=== PATIENT | female | born 1955 | race Caucasian/White ===

== ENCOUNTER 2017-08-29 16:40 | Emergency (ER) | payer OTHER, SELFPAY ==
[2017-08-29 16:42] VITALS: BP 128/79; PULSE 110; RESP 16; TEMP 36.5; O2SAT 100; BMI 27.6
--- NOTE | 2017-08-29 17:12 | EKG12_ITS ---
Test Reason : Blood Pressure : / mmHG Vent. Rate : 107 BPM Atrial Rate : 107 BPM P-R Int : 138 ms QRS Dur : 086 ms QT Int : 346 ms P-R-T Axes : 062 061 036 degrees QTc Int : 461 ms Sinus tachycardia Otherwise normal ECG Confirmed by MIRNA CARDENAS, ANDREA ([id number]), news editor JESSICA PEREZ ([id number] on 09/02/2017 10:48:17 AM Referred By: IMELDA Confirmed By:ANDREA BRADLEY MD
[2017-08-29] MEDS: Ondansetron 4 MG/2 ML Vial IV (17:27)
[2017-08-29] MEDS: 0.9% Normal Saline 1,000 ML 1000 ML IV (17:27)
[2017-08-29 17:36] LABS: Mucous, Urine 0 SEEN /hpf (<or=2+); Red Blood Cells-Urine 0 SEEN /hpf (0-5)
[2017-08-29 17:38] LABS: Absolute Lymphocyte Count 1.23 X10^3/ul (0.83-4.51); Absolute Neutrophil Count 6.7 X10^3/uL (2.0-7.7); Basophil# 0.03 X10^3/uL; Basophil% 0.3 % (0-1); Eosinophil# 0.09 X10^3/uL; Hematocrit 33.3 % (37-47); Hemoglobin 11.4 g/dl (12.0-15.0); Lymphocyte # 1.23 X10^3/ul (4.0); Mean Corp Hgb Conc 34.2 g/gl (32-36); Mean Corpuscular Hgb 28.5 pg (27.0-32.0); Mean Corpuscular Volume 83.3 fL (81-99); Mean Platelet Vol. 9.9 fl (6.2-12.0); Monocyte# 1.35 X10^3/uL; Monocyte% 14.3 % (0-10); Neutrophil # 6.73 X10^3/uL (2.7-7.7); Neutrophil % 71.2 % (47-70); Platelet Count 266 K/mm3 (150-450); RBC Distribution Width CV 12.1 % (11.6-14.6); RBC Distribution Width SD 36.6 fl (35.1-43.9); White Blood Count 9.5 K/mm3 (4.4-11.0)
[2017-08-29 17:39] LABS: POSITIVE COUNT NO; POSITIVE DIFFERENTIAL NO; POSITIVE MORPHOLOGY NO
[2017-08-29 17:42] LABS: Color, Urine Yellow (Yellow); Glucose, Dipstick Normal (Normal); Ketone-Dipstick 5 mg/dl (Negative); Leukocyte Esterase-Dipstick 500 /ul (Negative); Nitrite-Dipstick Negative (Negative); Occult Blood-Urine 25 /ul (Negative); Protein-Dipstick 30 mg/dl (Negative); Specific Gravity, Urine 1.015 (1.002-1.030); Urine Clarity Sl. Cloudy (Clear); Urine Urobilinogen Normal (Normal)
[2017-08-29 18:01] LABS: ALB/GLOB Ratio 0.7 RATIO (0.9-2.4); AST(SGOT) 17 U/L (15-37); Alanine Aminotransfer ALT/SGPT 20 U/L (13-56); Albumin, Serum 3.4 g/dL (3.2-5.0); Alkaline Phosphatase 60 U/L (45-117); Anion Gap 9 (5-15); BUN 23 mg/dL (7-18); BUN/Creat Ratio 18.7 RATIO (10-20); Chloride 96 mmol/L (98-107); Creatinine, Serum 1.23 mg/dL (0.55-1.02); EST Glomerular Filtration Rate 47 mL/min (>60); Est Glom Filt Rate - Afr Amer 57 mL/min (>60); Estimated Creatinine Clearance 40.74 ml/min; Globulin 4.9 g/dL (2.2-4.2); Glucose 145 mg/dL (74-106); Lipase 135 U/L (73-393); Potassium 4.1 mmol/L (3.5-5.1); Protein, Total 8.3 g/dL (6.4-8.2); Sodium Level 130 mmol/L (136-145)
[2017-08-29 18:07] LABS: Urine Bilirubin Dipstick 1 mg/dL (Negative)
[2017-08-29 18:22] LABS: White Blood Cells >100 SEEN /hpf (0-5)
[2017-08-29 18:23] LABS: Bacteria 3+ /hpf (None Seen); Squamous Epithelial Cells - UA 25-50 SEEN /hpf (5-10)
[2017-08-29 18:49] VITALS: BP 144/64; PULSE 110; RESP 14; O2SAT 98
[2017-08-29] MEDS: Acetaminophen 500 MG Tablet 1000 MG PO (18:57)
--- NOTE | 2017-08-29 19:13 | ED.VISSUMM ---
- ER Visit Summary Date of Service: 08/29/17 Chief Complaint: Abdominal pain History of Present Illness: The patient is a 61 F who states on Friday while working in unconditioned house she got very hot nauseated. She states she had a near syncopal event. She states her symptoms are just not gone away. She notes decreased urination and concentrated urine. Continued nausea. A generalized abdominal ache. She feels globally fatigued. She states her blood sugars have been elevated in the 200s. The nausea is made her unable to hydrate as well as she would like to. No reported fevers. Physical Examination: Afebrile vital signs stable Gen: Well-nourished well-developed Head: Normocephalic atraumatic Eyes: Perrl EOMI ENT: TMs clear no rhinorrhea moist mucous membranes Neck: Supple no lymphadenopathy no JVD nontender CVS: Regular rate and cardiac rhythm no murmurs normal S1-S2 Respiratory: No distress clear to auscultation bilaterally chest nontender Abdomen: Soft minimal tenderness to palpation throughout the abdomen nondistended normal bowel sounds no masses Back: Nontender Extremity: Nontender no edema Skin: Normal color no rash Neuro: alert orientated ?3 CN II-XII intact normal strength sensation reflexes gait cerebellar Psych: Normal affect normal mood Test Results: Hemoglobin 11.4. Glucose 145 BUN 23 with creatinine 1.23. Liver enzymes normal lipase 135. Urinalysis greater than 100 white blood cells 25-50 epithelial cells and 3+ bacteria. This was sent for culture. EKG sinus rhythm at a rate of 107. ( states that she always runs fast that her heart rate is usually greater than 100) Emergency Department Course and Treatment: Patient received IV fluids and Zofran and later Tylenol. I wrote a prescription for Zofran as well as some Macrobid. She will follow-up with her doctors return if worsening. Impression: 1. Dehydration 2. UTI This note was generated with [employer] dictation software. It may contain incorrect words, spelling, and punctuation that were not noted in review of the chart prior to signing ED Disposition - Plan for ED Patient: Disposition: Home or Assisted Living Chief Complaint: General Illness Instructions: ED Dehydration, ED UTI Cystitis Female Prescriptions: Ondansetron [Zofran Odt] 4 mg PO Q8H PRN PRN #10 tab PRN Reason: Nausea Nitrofurantoin Macrocrystals [Macrobid] 100 mg PO Q12 #10 cap Referrals: Roberto Salguero MD [Primary Care Provider] - 3-5 Days if not improving
[2017-08-29 19:25] VITALS: BP 139/64; RESP 18
== END 2017-08-29 19:25 | disposition home or self-care (01) ==
PROVIDERS: Emergency Provider Emergency Medicine; Family Provider Family Medicine; PCP Family Medicine
DX: E86.0 Dehydration (principal); N39.0 Urinary tract infection, site not specified; E11.9 Type 2 diabetes mellitus without complications; I10 Essential (primary) hypertension; R10.84 Generalized abdominal pain; Z79.84 Long term (current) use of oral hypoglycemic drugs; Z79.899 Other long term (current) drug therapy
CPT/HCPCS: 80053; 81001; 83690; 85025; 93005; 96361; 96374; 99283; J7030; A4216; J2405

== ENCOUNTER 2024-07-13 05:16 | Emergency (ER) | payer MEDICARE, SELFPAY ==
[2024-07-13 05:18] VITALS: BP 167/93; PULSE 102; RESP 20; TEMP 36.5; O2SAT 98; BMI 24.0
[2024-07-13 05:20] VITALS: BP 167/93; PULSE 100; RESP 20; TEMP 36.5; O2SAT 98
--- NOTE | 2024-07-13 05:26 | CT_ITS ---
PROCEDURE: ABDOMEN/PELVIS WITHOUT CONT 07/13/2024 REASON FOR EXAM: BACK PAIN, DYSURIA TECHNIQUE: Abdomen and pelvis CT without intravenous contrast. Noncontrast technique limits evaluation of the abdominal and pelvic viscera. Coronal and Sagittal reconstruction series were provided. One or more dose reduction techniques were used (e.g., Automated exposure control, adjustment of the mA and/or kV according to patient size, use of iterative reconstruction technique). PATIENT PREPARATION: Per protocol ORAL CONTRAST TYPE: None. COMPARISON: None available FINDINGS: The lung bases are clear. The liver, gallbladder, adrenal glands, kidneys, pancreas and spleen appear within limits. No renal stones, hydronephrosis or perinephric stranding. No ureteral or bladder stone identified. The bladder is mostly collapsed. Mild adjacent perivesicular fat stranding may be inflammatory or infectious, possible cystitis, clinically correlate. Aortoiliac atherosclerotic calcification. No abdominal aortic aneurysm. No adenopathy identified. No bowel dilation or free air. Normal caliber appendix without secondary signs. No free fluid. Status post apparent hysterectomy. Lower lumbar facet degenerative changes. L4-5 spondylosis/discogenic change. CT/Abdomen/Pelvis without Cont IMPRESSION: The bladder is mostly collapsed. Mild adjacent perivesicular fat stranding may be inflammatory or infectious, possible cystitis, clinically correlate. Reading Location: [id number]
--- NOTE | 2024-07-13 05:28 | EX.ED.DYSGE1 ---
HPI History of Present Illness Chief Complaint: Complaint Informant: patient and spouse/S.O. Narrative Narrative: 2-day history dysuria pain vaginal region. Symptoms worsen now pain in bilateral flank. No fever or chills. Nausea without vomiting. History of diabetes hypertension. States had hematuria with bladder lesions requiring cauterization. Followed by urologist Dr. Farrar up in [place]. No history of kidney stones. Denies history of kidney failure or gastric ulcers. Multiple allergies. Reports pain is 10 out of 10. Prior similar symptoms: Yes PFSH PFS Medical History Fibromyalgia Hypertension DM type 2 (diabetes mellitus, type 2) Home Medications ?Medication ?Instructions ?Recorded ?Last Taken ?Type lisinopril 10 mg tablet 10 mg PO DAILY 08/29/17 Unknown History metformin 500 mg tablet 500 mg PO BIDCM 08/29/17 Unknown History nortriptyline 50 mg capsule 50 mg PO QHS 08/29/17 Unknown History cefdinir 300 mg capsule 300 mg PO Q12H #14 caps 07/13/24 Unknown Rx docusate sodium 100 mg capsule 100 mg PO BID #30 caps 07/13/24 Unknown Rx (Colace) glimepiride 4 mg tablet 4 mg PO DAILY 07/13/24 Unknown History oxycodone-acetaminophen 5 mg-325 1 tab PO Q6H PRN PRN Pain 3 days 07/13/24 Unknown Rx mg tablet #12 TABLETS phenazopyridine 200 mg tablet 200 mg PO TID #10 tabs 07/13/24 Unknown Rx (Pyridium) Allergy/AdvReac Type Severity Reaction Status Date / Time adhesive Allergy Unknown Verified 07/13/24 05:17 amoxicillin Allergy Unknown Verified 07/13/24 05:17 atorvastatin (From Lipitor) Allergy Unknown Verified 07/13/24 05:17 bacitracin (From Neosporin Allergy Unknown Verified 07/13/24 05:17 ([id number])) gabapentin Allergy Unknown Verified 07/13/24 05:17 ibuprofen Allergy Unknown Verified 07/13/24 05:17 lorazepam (From Ativan) Allergy Unknown Verified 07/13/24 05:17 neomycin (From Neosporin Allergy Unknown Verified 07/13/24 05:17 ([id number])) polymyxin B (From Neosporin Allergy Unknown Verified 07/13/24 05:17 ([id number])) Surgical History Hx of cystoscopy Hx laparoscopic cholecystectomy Social History Smoking Status: Never smoker ROS ROS ED Constitutional Constitutional ED: Denies chills, fever(s) or sweats ENT ENT ED: Denies sore throat Cardiovascular Cardiovascular: Denies chest pain, leg edema, palpitations or racing heartbeat Respiratory/Chest Respiratory/Chest: Denies cough, dyspnea or dyspnea on exertion Gastrointestinal Gastrointestinal: Reports nausea; Denies abdominal pain, diarrhea or vomiting Genitourinary Genitourinary ED: Reports dysuria; Denies hematuria or urinary frequency Musculoskeletal Musculoskeletal: Reports back pain; Denies extremity pain or neck pain Integumentary Denies rash or wounds Neurologic Neurologic: Denies headache(s), paresthesias or weakness EXAM Physical Exam Const Vital Signs: 07/13/24 05:18 07/13/24 05:20 Temperature 97.7 F L 97.7 F L Temperature Source Oral Oral Pulse Rate 102 H 100 Respiratory Rate 20 H 20 H Blood Pressure 167/93 H 167/93 H Blood Pressure Mean 117 117 Pulse Ox 98 98 Oxygen Delivery Method Room Air Room Air Positive well nourished and well developed Constitutional Narrative: Uncomfortable, nontoxic General Appearance ED: well developed HEENT Reports moist mucous membranes normocephalic and atraumatic Eyes General Eye ED: Yes normal appearance of both eyes Neck full ROM Chest Wall Chest: Negative for tenderness Resp normal respiratory effort and normal air movement Effort and Inspection: symmetric chest movement; Negative for respiratory distress Cardio regular rate, regular rhythm and no murmurs Peripheral Pulses: pulses 2+ throughout GI normal to inspection, nondistended, normoactive bowel sounds GI Narrative: Negative Everett's McBurney's tenderness. Mild suprapubic tenderness. Palpation: Negative for guarding or rebound tenderness present Back/Spine General Back: CVA tenderness Extremity normal to inspection General Extremety ED: Negative for edema or tenderness General Extremity: Negative for edema Neuro oriented x3 and no sensory deficits noted Sensorium / Orientation: awake and alert Skin no rashes or lesions noted and no wounds MDM MDM MDM Narrative Medical decision making narrative: Interventions / MDM: Differential diagnosis: Complicated UTI, cystitis Diagnosis considered but do not suspect: Kidney stone however CT negative. My EKG interpretation: N/A Imaging independently reviewed and interpreted by myself: CT abdomen pelvis: No kidney stones. Cystitis noted also read by radiology. External documents reviewed: Creatinine 1.23 slightly elevated from 2018. Test considered but not ordered:N/A ED course: Patient started with dysuria and now worsening bilateral back pain reports sharp in nature 10 out of 10. Will check labs urine urine culture. Fluids Zofran and morphine ordered. Initial plan for NSAIDs however allergy to ibuprofen along with having creatinine elevated 1.23 in 2018. This is held. Flank CT ordered for further evaluation. Reevaluation no had sharp pain when she urinated. I did add Toradol she had normal renal function. White count normal. Urine positive for infection. She is given IV Rocephin culture pending. Will write prescription for complicated UTI findings, Pyridium, pain medicines and stool softeners. She is followed by urology Dr. Farrar. Outpatient follow-up. All questions were answered. Re-evaluation: stable Disposition discussed with patient/family/significant other: Patient and significant other Case discussed with consulting clinician: N/A This note was generated with [employer] dictation software. It may contain incorrect words, spelling, and punctuation that were not noted in checking the note before signing. Lab Data Attestation: I reviewed the patient's lab results. Labs: Laboratory Results - last 24 hr 07/13/24 07/13/24 05:33 05:40 WBC 5.6 RBC 4.10 L Hgb 11.7 L Hct 34.8 L MCV 84.9 MCH 28.5 MCHC 33.6 RDW Std Deviation 38.9 RDW Coeff of Kelly 12.6 Plt Count 199 MPV 10.0 Immature Gran % (Auto) 0.200 Neut % (Auto) 45.2 L Lymph % (Auto) 33.9 Craig % (Auto) 9.6 Eos % (Auto) 10.2 H Baso % (Auto) 0.9 Absolute Neuts (auto) 2.5 Absolute Lymphs (auto) 1.90 Nucleated RBC % 0 Sodium 137 Potassium 5.2 H Chloride 105 Carbon Dioxide 22.5 Anion Gap 10 BUN 21 H Creatinine 1.14 Estim Creat Clear Calc 48.97 L Est GFR (MDRD) Non-Af 53 L BUN/Creatinine Ratio 18.8 Glucose 157 H Calcium 9.6 Urine Color Yellow Urine Clarity Clear Urine pH 5.0 Ur Specific [place] 1.025 Urine Protein 100 H Urine Glucose (UA) Normal Urine Ketones Negative Urine Occult Blood 10 H Urine Nitrite Positive H Urine Bilirubin 1 H Urine Urobilinogen 1 H Ur Leukocyte Esterase 25 H Urine RBC 0 SEEN Urine WBC 10-25 SEEN Ur Squamous Epith Cells 0-5 SEEN Urine Bacteria 1+ Urine Mucus 0 SEEN Radiography Diagnostic Testing: Clinical Impression(s) from Imaging Studies Abdomen/Pelvis CT 07/13/24 05:26 IMPRESSION: The bladder is mostly collapsed. Mild adjacent perivesicular fat stranding may be inflammatory or infectious, possible cystitis, clinically correlate. Reading Location: [facility] Discharge Plan Triage Chief Complaint: Complaint ED Provider: Nilo Martinez Dx/Rx/DC Orders Clinical Impression: Complicated urinary tract infection, Cystitis Instructions: Urinary Tract Infections in Women, ED Cystitis Female Adult Prescriptions: New docusate sodium [Colace] 100 mg capsule 100 mg PO BID Qty: 30 0RF cefdinir 300 mg capsule 300 mg PO Q12H Qty: 14 0RF phenazopyridine [Pyridium] 200 mg tablet 200 mg PO TID Qty: 10 0RF oxycodone-acetaminophen 5-325 mg tablet 1 tab PO Q6H PRN PRN (Reason: Pain) 3 Days Qty: 12 0RF No Action metformin 500 MG tablet 500 mg PO BIDCM lisinopril 10 MG tablet 10 mg PO DAILY nortriptyline 50 MG capsule 50 mg PO QHS Patient Comments: glimepiride 4 mg tablet 4 mg PO DAILY Primary Care Provider: Roberto Salguero Referrals: Roberto Salguero MD [Primary Care Provider] - 3-5 Days if not improving Activity Restrictions/Additional Instructions: Urine with infection. Normal white count normal renal function CT negative of your abdomen pelvis. Take and finish antibiotic prescribed. Use medications as prescribed. Take stool softeners to avoid constipation. Using the oxycodone. Follow-up with your doctors. Print Language: Omani Disposition Disposition: Home, Self Care
[2024-07-13] MEDS: Ondansetron 4 MG/2 ML Vial IV (05:32)
[2024-07-13] MEDS: Morphine 4 MG/ML Syringe IV (05:32)
[2024-07-13] MEDS: 0.9% Normal Saline (500mL Bag) 500 ML 1000 ML IV (05:33)
[2024-07-13 05:42] LABS: Absolute Neutrophil Count 2.5 X10^3/uL (2.0-7.7); Basophil# 0.05 X10^3/uL; Basophil% 0.9 % (0-1); Eosinophil# 0.57 X10^3/uL; Eosinophils% 10.2 % (0-5); Hematocrit 34.8 % (37-47); Hemoglobin 11.7 g/dL (12.0-15.0); Lymphocyte % 33.9 % (19-41); Mean Corp Hgb Conc 33.6 g/dL (32-36); Mean Corpuscular Hgb 28.5 pg (27.0-32.0); Mean Corpuscular Volume 84.9 fL (81-99); Monocyte# 0.54 X10^3/uL; Monocyte% 9.6 % (0-10); NRBC Flagged by Analyzer 0 % (0-5); Neutrophil # 2.53 X10^3/uL (2.7-7.7); Neutrophil % 45.2 % (47-70); Platelet Count 199 K/mm3 (150-450); RBC Distribution Width CV 12.6 % (11.6-14.6); RBC Distribution Width SD 38.9 fl (35.1-43.9); White Blood Count 5.6 K/mm3 (4.4-11.0)
[2024-07-13 05:47] LABS: Mucous, Urine 0 SEEN /hpf (<or=2+); Red Blood Cells-Urine 0 SEEN /hpf (0-5)
[2024-07-13 06:00] LABS: Color, Urine Yellow (Yellow); Glucose, Dipstick Normal (Normal); Ketone-Dipstick Negative (Negative); Leukocyte Esterase-Dipstick 25 /ul (Negative); Nitrite-Dipstick Positive (Negative); Occult Blood-Urine 10 /ul (Negative); Protein-Dipstick 100 mg/dl (Negative); Specific Gravity, Urine 1.025 (1.002-1.030); Urine Clarity Clear (Clear); Urine Urobilinogen 1 mg/dl (Normal)
[2024-07-13 06:05] LABS: Anion Gap 10 (5-15); BUN 21 mg/dL (4-19); BUN/Creat Ratio 18.8 RATIO (10-20); Calcium,Total 9.6 mg/dL (7.6-11.0); Carbon Dioxide 22.5 mmol/L (21.0-32.0); Chloride 105 mmol/L (98-108); Creatinine, Serum 1.14 mg/dL (0.70-1.20); EST Glomerular Filtration Rate 53 (>60); Estimated Creatinine Clearance 48.97 ml/min (50-250); Glucose 157 mg/dL (70-99); Potassium 5.2 mmol/L (3.3-5.1); Sodium Level 137 mmol/L (133-145)
[2024-07-13 06:16] LABS: Bacteria 1+ /hpf (None Seen); Squamous Epithelial Cells - UA 0-5 SEEN /hpf (5-10); Urine Bilirubin Dipstick 1 mg/dL (Negative); White Blood Cells 10-25 SEEN /hpf (0-5)
[2024-07-13] MEDS: Phenazopyridine 95 MG Tablet 190 MG PO (06:24)
[2024-07-13] MEDS: Ceftriaxone 1 GM/50 ML BAG IV (06:45)
[2024-07-13] MEDS: Ketorolac 15 MG/ML Vial IV (06:45)
[2024-07-13 07:31] VITALS: BP 162/80; PULSE 99; RESP 17; O2SAT 95
[2024-07-13 07:32] VITALS: BP 162/80; PULSE 99; RESP 17; TEMP 36.6; O2SAT 95
== END 2024-07-13 07:37 | disposition home or self-care (01) ==
PROVIDERS: Emergency Provider Emergency Medicine; PCP Family Medicine; Visit Provider Emergency Medicine
DX: N30.90 Cystitis, unspecified without hematuria (principal); E11.9 Type 2 diabetes mellitus without complications; I10 Essential (primary) hypertension; Z79.84 Long term (current) use of oral hypoglycemic drugs; Z79.899 Other long term (current) drug therapy
CPT/HCPCS: 74176; 80048; 81001; 85025; 87086; 87088; 96361; 96365; 96375; 99283; A4216; J2405